=== PATIENT | female | born 1950 | race Caucasian/White ===

== ENCOUNTER 2017-01-17 17:48 | Observation (INO) | payer MEDICARE, OTHER ==
[~2017-01-17] VITALS: Ht 172.7 cm; Wt 122.8 kg
[2017-01-17] VITALS (7 sets, daily range): BP systolic 168–215; BP diastolic 66–95; PULSE 75–85; RESP 16–18; O2SAT 95–100
--- NOTE | 2017-01-17 18:06 | ED.REPORT ---
HPI-Chest Pain 40 and Over Date of Service Jan 17, 2017 ED Provider: Kenney Young DO 66-year-old female with past medical history of coronary artery disease with stent placement in 2012, hypertension, hyperlipidemia, prediabetes, breast cancer with radiation treatment, presents today with chest heaviness. She states this began 30 minutes prior to arrival while she was sitting watching TV. Her symptoms came on suddenly and have been intermittent since onset. She states she is not in pain but describes a heaviness in her chest which radiates to her right shoulder. When she had her coronary stent back in 2012 she does not describe having chest pain. She denies shortness of breath, nausea/vomiting , fever chills, abdominal pain, changes in bowel or bladder, she has not lost consciousness, she does not feel dizzy, did not have a headache until nitroglycerin was given in the ambulance. Blood pressure on arrival was 215/95. Nursing Notes Stated Complaint: CHEST PAIN Chief Complaint: Chest Pain Nursing Notes Reviewed: Yes Allergies: Coded Allergies: Macrolide Antibiotics (Verified Allergy, Unknown, 01/17/17) Penicillins (Verified Allergy, Unknown, 01/17/17) amoxicillin (Verified Allergy, Unknown, rash, 01/17/17) erythromycin base (Verified Allergy, Unknown, 01/17/17) strawberry (Verified Allergy, Unknown, hives, oral sores, 01/17/17) Uncoded Allergies: ORANGES (Allergy, Unknown, oral sores, 01/17/17) Scheduled Lisinopril (Lisinopril) 10 Mg Tablet 10 MG PO QAM Lisinopril (Lisinopril) 10 Mg Tablet 5 MG PO HS Metoprolol Tartrate (Metoprolol Tartrate) 25 Mg Tablet 25 MG PO BID Simvastatin (Simvastatin) 20 Mg Tablet 20 MG PO HS General Time Seen by MD: 18:06 Chief Complaint Chest pain Hx Obtained From: Patient, EMS Arrived By: Ambulance Sudden in Onset?: Yes Onset Occurred: Just prior to arrival Severity: Current: No pain currently Severity: Maximum: No pain Risk Factors )( CAD Risk Stratification Hyperlipidemia Hypertension Known CADNo Amphetamine, No Cocaine, No Diabetes mellitus, No Smoking Risk factors reviewed )( TAD Risk Stratification Risk factors reviewed )( PE Risk Stratification Risk factors reviewed Past Medical History Past Medical History Breast cancer with radiation Reports: Coronary artery disease, Hyperlipidemia, Hypertension Smoking History Never Smoker Social History Alcohol Use: Denies alcohol use Drug Use: Denies drug use Review of Systems Basic Review of Systems : No dysuria, No frequency Constitutional: Denies: Chills, Fever Respiratory: Denies: Non-productive cough, Pleuritic pain, Shortness of breath , Wheezing Cardiovascular: Reports: Chest pain GI: Denies: Abdominal pain, Constipation, Diarrhea Skin: Denies Diaphoresis Neurologic: Denies: Abnormal movement, Bladder dysfunction, Bowel dysfunction, Change LOC, Dizziness, Headache, Lightheaded Complete sys rev & neg: except as marked. Physical Exam Physical Exam Notes: Swelling in the left arm, the resected lymph nodes in breast cancer treatment. Blood pressure symmetrical in all 4 extremities Initial Vital Signs Vital Signs (First) Date Time Temp Pulse Resp B/P Pulse Ox O2 Delivery O2 Flow Rate FiO2 01/17/17 18:01 36.9 85 16 215/95 98 Room Air Initial VS: Reviewed, Vital signs abnormal Head / Eyes: Atraumatic, Normocephalic, PERRL ENT: Mucous membranes moist, Conjunctiva normal, No scleral icterus Neck: Supple, Non-tender, Full range of motion Extremities: Vascular intact, Neuro intact, No tenderness Skin: Warm, Dry, No cyanosis Neurologic: Alert, Oriented, Nonfocal Psychiatric: Mood/affect normal, Behavior normal, Normal thought content General/Constitutional: Awake, Alert, No acute distress, Well appearing, Cooperative, Not toxic appearing Respiratory / Chest: Atraumatic, Breath sounds NL, Breath sounds = bilat, No rales, No rhonchi, No wheezing Cardiovascular: Heart rate NL, Regular rhythm, Heart sounds NL, No murmurs, No rubs Interpretation & Diagnostics Lab Results Interpretation Result Diagram: 01/17/17 1755 01/17/17 1755 Test 01/17/17 17:55 White Blood Count 8.8th/mm3 (3.8-10.1) Red Blood Count 4.07mil/mm3 (3.90-5.20) Hemoglobin 12.0g/dL (12.0-15.6) Hematocrit 36.2% (35.0-46.0) Mean Corpuscular Volume 88.9fL (81-100) Mean Corpuscular Hemoglobin 29.5pg (27.0-35.0) Mean Corpuscular Hemoglobin Concent 33.1% (32.0-37.0) Red Cell Distribution Width 14.3% (12.3-15.4) Platelet Count 288bil/L (150-400) Neutrophils (%) (Auto) 54.9% (40-74) Lymphocytes (%) (Auto) 31.4% (14-46) Monocytes (%) (Auto) 9.3% (4-12) Eosinophils (%) (Auto) 3.8% (0-5) Basophils (%) (Auto) 0.5% (0-3) Sodium Level 141mEq/L (134-144) Potassium Level 4.0mEq/L (3.5-5.2) Chloride Level 102mEq/L (97-108) Carbon Dioxide Level 21mmol/L (18-29) Blood Urea Nitrogen 16mg/dL (8-27) Creatinine 0.79mg/dL (0.57-1.00) Estimat Glomerular Filtration Rate 104mL/min (>59) Glucose Level 148mg/dL (60-99) Calcium Level 9.5mg/dL (8.5-10.1) Magnesium Level 2.1mg/dL (1.6-2.6) Total Bilirubin 0.3mg/dL (0.0-1.2) Aspartate Amino Transf (AST/SGOT) 24U/L (0-50) Alanine Aminotransferase (ALT/SGPT) 26U/L (0-32) Alkaline Phosphatase 65U/L (25-165) Total Protein 6.9g/dL (6.4-8.4) Albumin 3.7g/dL (3.4-5.0) ECG Interpretation ECG Interpretation: Not suggestive of ischemic change Slight Left axis deviation Interpreted by: ED physician Normal ECG Interpretation: Normal rate, Normal sinus rhythm, No acute ischemic changes, Normal QRS, Normal intervals, Adequate tracing Atrium and Vent Size: Ventricle enlarged - L Re-Eval/Medical Decision Med Decision/Clinical Course Heart score 6. Risk factors for [place] include history of high suspicion including heaviness in the chest which radiates the right shoulder, Age over 65, history of hypertension, high cholesterol, stent placement 2012. Initial troponins negative, EKG showed nonspecific findings of left ventricular hypertrophy. Patient was given nitroglycerin the ambulance in route, she states that her pain is not changed significantly since that time. Her blood pressure on arrival was 215/95 which is concerning for hypertensive crisis. With a past medical history and symptoms she is presenting with today we are concerned for unstable angina. He went to normal EKG findings and negative troponins and was advised the patient be admitted to the hospital for further observation and workup. Counseled Regarding: Diagnosis, Lab results, Need for admission Discharge & Departure Primary Impression: Unstable angina Additional Impression: Hypertensive crisis Disposition: ADMITTED TO HOSPITAL Discharge Condition All VS Reviewed: Yes Condition: Stable Referrals: Barbara Garnica MD (PCP) Crit Care Except Billable Proc Time Spent: 75-104 minutes Services Performed: Patient management by me, Time spent at bedside, Reviewing test results, Reviewing imaging, Discussing patient care, Documentation in record, Time with fam/surrogate, Other (managing her accelerated hypertension and ongoing chest pain crisis.) Attending Statement I personally took a history performed an exam. I was present on multiple occasions during the interventions. Blood pressure was treated nicely with IV beta franky and nitrates. Chest pain resolved. First troponin was negative. First EKG is not sure STEMI. Aortic dissection felt to be very unlikely based on history, physical and symmetric blood pressures. Patient was admitted stable to the hospitalist service. Meño Bettencourt DO Jan 17, 2017 18:06 Kenney Young DO Jan 18, 2017 00:13
[2017-01-17 18:10] LABS: BASOPHILS % (AUTO) 0.5 % (0-3); EOSINOPHILS % (AUTO) 3.8 % (0-5); MONOCYTES % (AUTO) 9.3 % (4-12); Mean Corpuscular Hemoglobin 29.5 pg (27.0-35.0); Mean Corpuscular Volume 88.9 fL (81-100); NEUTROPHILS % (AUTO) 54.9 % (40-74); Platelet Count 288 bil/L (150-400)
[2017-01-17] MEDS ORDERED: Nitroglycerin 2% 1 Gm Ointment TOPICAL ONE (18:20)
--- NOTE | 2017-01-17 18:28 | DRSVH ---
PROCEDURE: X-RAY CHEST ONE VIEW, PORTABLE ([id number]) INDICATIONS: cp TECHNIQUE: One view of the chest was acquired. COMPARISON: [facility], CR, CHEST 2VW, 09/20/2015, 9:56. FINDINGS: Surgical changes and devices: air cargo agent leads are seen over the chest. Multiple vascular clips are seen in the region of the left breast. Lungs and pleura: No pleural effusions or pneumothorax. Lungs are clear. Mediastinum: Mediastinal contours appear normal. Heart size is normal. Bones and chest wall: No suspicious bony lesions. Overlying soft tissues appear unremarkable. IMPRESSION: Acute disease is not seen and may upright portable chest. Dictated by: Arsen Pak M.D. on 01/17/2017 at 18:24 Approved by: Arsen Pak M.D. on 01/17/2017 at 18:26
[2017-01-17 18:38] LABS: Magnesium 2.1 mg/dL (1.6-2.6)
[2017-01-17 18:40] LABS: TROPONIN T < 0.010 ug/L (0.0-0.011)
[2017-01-17] MEDS: MeTOProlol 1 mg/mL 5 mL Inj IVPUSH SCH ×3 (18:56→19:56)
[2017-01-17] MEDS ORDERED: Labetalol 5 mg/mL 4 mL Inj IVPUSH ONE (19:20)
[2017-01-17] MEDS ORDERED: METO25TA6 PO (19:45)
[2017-01-17] MEDS ORDERED: SIMV20TA4 PO (19:45)
[2017-01-17] MEDS ORDERED: LISI10TA PO ×2 (19:45)
[2017-01-17] MEDS ORDERED: Alum-Mag Hydrox-Simeth 30 mL Suspension PO PRN ×2 (21:05→21:50)
[2017-01-17] MEDS ORDERED: Ondansetron 2 mg/mL 2 mL Inj IVPUSH PRN ×2 (21:05→21:50)
[2017-01-17] MEDS ORDERED: Senna-Docusate 8.6-50 mg Tablet PO PRN (21:50)
[2017-01-17] MEDS ORDERED: Polyethylene Glycol (PEG) 17 Gm Powder PO PRN (21:50)
[2017-01-17] MEDS: Heparin 5,000 Unit/mL Inj SUBQ SCH (22:39)
[2017-01-17] MEDS: Sodium Chloride LOK Flush 10 mL Syringe IVFLUSH SCH (22:48)
--- NOTE | 2017-01-17 23:18 | PCM.HPMED ---
Subjective Date of Service Jan 17, 2017 Primary Provider: Admitting Physician: Vinod Christian MD Primary Care Physician: Bernadette Hendricks Attending Physician: Vinod Christian MD Chief Complaint: Chest heaviness History of Present Illness: Leona oates is a 66-year-old female with past medical issues significant for coronary artery disease with status post LAD bare metal stent in 2010, hypertension, hyperlipidemia, breast cancer status post resection, TRAM flap, chemoradiation completed in 2002, and anxiety who presents with sudden onset of chest heaviness. Chest heaviness started her on 1500 today while she was watching TV. She states that prior to that she was in her normal state of health and did not exert herself more than normal today. Chest heaviness sternum and radiated to the right shoulder. Patient has never had a myocardial infarction so no symptoms to compare this to. She had some associated diaphoresis and nausea but denies any significant shortness of breath, dizziness , headache, or weakness. Chest heaviness has been intermittent over the last 4- 5 hours. She rates the pain at worst as a 5 out of 10 but currently it is more of an annoyance. She experienced no relief with sublingual nitroglycerin. Pertinent cardiac history includes a stress test in 2010 due to chest pressure that revealed apical ischemia and led to bare metal stent of the LAD. She has had a more recent nuclear stress test in 2014 that showed similar findings to her prior test in 2010. Patient was brought by EMS and received through 24 mg of aspirin and 2 doses of sublingual nitroglycerin. In the ED patient's vitals were temp 36.9, pulse 85, respiratory 16 sex are 98% on room air, blood pressure 215/95. Patient subsequently received 3 doses of metoprolol 5 mg IV reducing blood pressure to the 170s systolic. EKG was obtained and revealed no ST changes or other signs of ischemia. Labs were unremarkable including a negative troponin. Due to patient's significant cardiac history and stent placement she is admitted for ACS rule out. Review of Systems: Comprehensive review of systems was conducted with the patient and found to be negative except as noted above in HPI. Allergies Coded Allergies: Macrolide Antibiotics (Verified Allergy, Unknown, 01/17/17) Penicillins (Verified Allergy, Unknown, 01/17/17) amoxicillin (Verified Allergy, Unknown, rash, 01/17/17) erythromycin base (Verified Allergy, Unknown, 01/17/17) strawberry (Verified Allergy, Unknown, hives, oral sores, 01/17/17) Uncoded Allergies: ORANGES (Allergy, Unknown, oral sores, 01/17/17) Home Medications Lisinopril 10 mg every morning and 5 mg at bedtime Simvastatin Metoprolol 5 mg twice a day PMH Left breast cancer status post resection, TRAM flap, and chemoradiation in remission since 2002 Coronary artery disease status post bare-metal stent of the LAD Hypertension Hyperlipidemia Anxiety Surgical History Resection and TRAM flap of left breast Right breast reduction Tonsillectomy Family History Father - lung cancer secondary to smoking Brother - COPD, asthma, melanoma Social History Hx Alcohol Use: Yes (RARELY) Hx Substance Use: No Hx Tobacco Use: No (significant secondhand smoke exposure) Smoking Status: Never Smoker Living Arrangement: with Family Exam Vital Signs Vital Sign - Last Date Time Temp Pulse Resp B/P Pulse Ox O2 Delivery O2 Flow Rate FiO2 01/17/17 22:35 36.9 81 18 173/76 97 Room Air Exam General: No acute distress, well-developed, well-nourished, appropriately interactive HEENT: Normocephalic, atraumatic. External ears without defect. Pupils equal, round, and reactive to light and accommodation. Anicteric sclerae, moist conjunctivae, and no lid lag. Oropharynx free of erythema and cobble stoning with moist mucosa. Neck: Supple with full range of motion. No jugular venous distension. Chest: Surgical scars present from left TRAM flap and right breast reduction. Cardiovascular: Regular rate and rhythm with no murmurs, rubs, or gallops appreciated Pulmonary: Clear to auscultation bilaterally with no crackles, wheezes, or rhonchi. Normal respiratory effort with no use of accessory muscles. Abdomen: Bowel tones present. Soft, nontender, protuberant. Extremities: No clubbing, cyanosis, edema, or lymphadenopathy appreciated. Skin: Normal temperature, turgor, and texture; no rash, ulcers, or subcutaneous nodules appreciated. Neurological: Cranial nerves grossly intact. No known gait impairment. Psychiatric: Normal mood and affect. Alert and oriented to person, place, and time. Lab and Diagnostics Labs Troponin less than 0.010 Result Diagram: 01/17/17 7327 01/17/17 945 Assessment & Plan Leona whitlock be is a 66-year-old female with past medical issues significant for coronary artery disease with status post LAD bare metal stent in 2010, hypertension, hyperlipidemia, breast cancer status post resection, TRAM flap, chemoradiation completed in 2002, and anxiety who presents with sudden onset of chest heaviness. Admitted for ACS rule out. Chest pain, present on admission, active. - ECG revealed normal sinus rhythm with LVH but no ST elevations or other signs of ischemia. - Initial troponin < 0.010. Trending troponins 3. - Lipid panel pending. - Supplemental oxygen as needed. - Aspirin 324 mg initially received and 81 mg continued daily. - Sublingual nitroglycerin as needed. - Monitor on remote telemetry. - Stress test scheduled for tomorrow. Instructions as follows: - Patient NPO starting at 0400 on 01/18/17. - No caffeine. - Hold beta blockers. Coronary artery disease status post bare metal stent of the LAD, present on admission, chronic. - Nuclear stress test in 2014 revealed apical ischemia similar to findings on prior test in 2010. - Home regimen does not include a daily aspirin. Aspirin 81 mg daily started. - Patient on simvastatin at home. Pharmacy does not carry this statin and patient has had adverse reactions to other statins. Hypertension, present on admission, active. - Blood pressure elevated to 200 systolic on presentation. IV metoprolol 5 mg 3 given in the ED with appropriate response - Continue home regimen of lisinopril 10 mg in the a.m. and 5 mg HS. - Metoprolol held for stress test tomorrow. Hyperlipidemia, present on admission, chronic. - Patient on simvastatin at home. Pharmacy does not carry this statin and patient has had adverse reactions to other statins. - We will hold statin therapy while inpatient. PRN Medications - Acetaminophen as needed for mild pain/fever/headache - Bowel regimen as needed - Antiemetic as needed Patient is admitted under observation status with expected length of stay less than 2 midnights due to severity of presenting symptoms, risk of adverse event, and complexity of treatment plan. Pain Evaluation: Adequate Pain Control GI Prophylaxis: Not indicated VTE Prophylaxis: Sub-Q Heparin (Unfractionated), SCDs Resuscitation Status: CPR: Attempt Resuscitation Attending Statement The patient was seen and examined together with Dr. Caldera on 01/17 and I agree with the history, exam and plan as outlined in the note above. RICHARDSON CALDERA DO Jan 17, 2017 23:18 Vinod Christian MD Jan 18, 2017 02:39
[2017-01-18 02:32] VITALS: BP 194/83; PULSE 89; RESP 16; O2SAT 96
[2017-01-18 05:11] VITALS: PULSE 81
[2017-01-18 05:12] LABS: Magnesium 2.2 mg/dL (1.6-2.6); Phosphorus 3.3 mg/dL (2.5-4.9)
--- NOTE | 2017-01-18 06:35 | NUR ---
Admit/CP Admitted to 1029 from ED via stretcher. Able to ambulate on arrival. No noted SOB on RA. Tele SR without c/o CP initially. Denies n/v or issues with PO intake. NPO @ 0400 per MD orders. Toileting per BSC. IV SL. Personal belongings at bedside per patient request. Oriented to call light use with return demonstration. c/o 2-09/08 CP with radiation into left arm as apposed to radiation into right arm which she had experienced at home. She was unable to provide much description about the type of pain other than her left hand had mild numbness with the pain. STAT EKG obtained and SL nitro x1 administered along with O2 administration with resolved all pain. Patient also noted to be experiencing dyspnea during the event which also resolved once no longer experiencing CP.
[2017-01-18 06:45] VITALS: BP 157/73; PULSE 86; RESP 16; O2SAT 98
[2017-01-18 08:00] VITALS: PULSE 85
[2017-01-18] MEDS: Heparin 5,000 Unit/mL Inj SUBQ SCH ×2 (08:30→14:50)
[2017-01-18] MEDS: Sodium Chloride LOK Flush 10 mL Syringe IVFLUSH SCH ×2 (08:30→14:50)
[2017-01-18 08:33] VITALS: BP 155/74; PULSE 91; RESP 18; O2SAT 95
--- NOTE | 2017-01-18 12:20 | NUR ---
Off Unit Pt off unit to Stress Test at 1200; tele box left in room. Pt aware of the plan re: stress test. NPO since 399, IV SL, Pt to BR prior to leaving. Chart with pt. Left via w/c. Await pt return. Addendum: 01/18/17 at 1653 by JAMSHID NI RN Returned to [facility]SC unit from Stress Test, back to 1029, at 1415. Chart returned. Pt up to BR, no pain, tele reapplied. Food ordered and water provided.
--- NOTE | 2017-01-18 15:15 | NUR ---
Social Work- Initial Assessment/Readiness for Discharge/Multidisciplinary Rounds Data: See attached initial assessment for more information. Pt is a 66 year old female admitted for ACS per H&P. Pt's insurance is [employer]. Pt's PCP is MARYANNE Cha. Pt's readmit risk score is not listed. Pt discussed in rounds. Pt to receive stress test today and pending results may discharge this evening. No social work needs identified in rounds. SW met with pt at bedside regarding discharge plan. Pt alert and oriented x3. Pt resides in [place] with her . Pt's capacity for self-care assessed. Pt is independent with ADLs and self-care. Pt uses no DME and drives. Pt has no HH or SNF history. Pt's daughter is her identified discharge contact--Juany [phone]. Pt provided paperwork for DPOA. No concerns related to self-care. SW provided plan on whiteboard and phone number. Pt provided with discharge planning checklist and instructed to contact if needs arise. Pt to discharge home with family to transport via POV. No needs identified at this time. Assessment: Pt who is independent at baseline. Plan: Pt to discharge home with family to transport via POV. No needs identified at this time. CHANTEL Arana Addendum: 01/18/17 at 1520 by MARIBETH DEVI SS Amended: Links added.
--- NOTE | 2017-01-18 15:33 | PCM.PNMED ---
Subjective Date of Service Jan 18, 2017 Subjective Patient denies any current chest pain. No major overnight events. Exam Vital Signs Vital Sign - Last Date Time Temp Pulse Resp B/P Pulse Ox O2 Delivery O2 Flow Rate FiO2 01/18/17 08:33 36.7 91 18 155/74 95 Room Air 01/18/17 06:45 2.00 Intake and Output 01/17/17 01/17/17 01/18/17 Cumulative From/Thru 15:00 23:00 07:00 01/17/17 18:01 - 01/18/17 02:34 Intake Total 0 ml 0 ml Balance 0 ml 0 ml IV Total 0 ml 0 ml # Voids 1 1 Exam General: No acute distress, well-developed, well-nourished, appropriately interactive HEENT: Normocephalic, atraumatic. External ears without defect. Pupils equal, round, and reactive to light and accommodation. Anicteric sclerae, moist conjunctivae, and no lid lag. Oropharynx free of erythema and cobble stoning with moist mucosa. Neck: Supple with full range of motion. No jugular venous distension. Chest: Surgical scars present from left TRAM flap and right breast reduction. Cardiovascular: Regular rate and rhythm with no murmurs, rubs, or gallops appreciated Pulmonary: Clear to auscultation bilaterally with no crackles, wheezes, or rhonchi. Normal respiratory effort with no use of accessory muscles. Abdomen: Bowel tones present. Soft, nontender, protuberant. Extremities: No clubbing, cyanosis, edema, or lymphadenopathy appreciated. Skin: Normal temperature, turgor, and texture; no rash, ulcers, or subcutaneous nodules appreciated. Neurological: Cranial nerves grossly intact. No known gait impairment. Psychiatric: Normal mood and affect. Alert and oriented to person, place, and time. IVs and Medications Medications Reviewed: Medications were reviewed in detail Lab and Diagnostics Laboratory Tests Test 01/17/17 17:55 01/17/17 22:30 01/18/17 04:00 White Blood Count 8.8th/mm3 (3.8-10.1) Red Blood Count 4.07mil/mm3 (3.90-5.20) Hemoglobin 12.0g/dL (12.0-15.6) Hematocrit 36.2% (35.0-46.0) Mean Corpuscular Volume 88.9fL (81-100) Mean Corpuscular Hemoglobin 29.5pg (27.0-35.0) Mean Corpuscular Hemoglobin Concent 33.1% (32.0-37.0) Red Cell Distribution Width 14.3% (12.3-15.4) Platelet Count 288bil/L (150-400) Neutrophils (%) (Auto) 54.9% (40-74) Lymphocytes (%) (Auto) 31.4% (14-46) Monocytes (%) (Auto) 9.3% (4-12) Eosinophils (%) (Auto) 3.8% (0-5) Basophils (%) (Auto) 0.5% (0-3) Sodium Level 141mEq/L (134-144) 139mEq/L (134-144) Potassium Level 4.0mEq/L (3.5-5.2) 4.7mEq/L (3.5-5.2) Chloride Level 102mEq/L (97-108) 103mEq/L (97-108) Carbon Dioxide Level 21mmol/L (18-29) 21mmol/L (18-29) Blood Urea Nitrogen 16mg/dL (8-27) 15mg/dL (8-27) Creatinine 0.79mg/dL (0.57-1.00) 0.73mg/dL (0.57-1.00) Estimat Glomerular Filtration Rate 104mL/min (>59) 114mL/min (>59) Glucose Level 148mg/dL (60-99) 186mg/dL (60-99) Hemoglobin A1c 7.5% (4.8-5.6) Calcium Level 9.5mg/dL (8.5-10.1) 9.3mg/dL (8.5-10.1) Magnesium Level 2.1mg/dL (1.6-2.6) 2.2mg/dL (1.6-2.6) Total Bilirubin 0.3mg/dL (0.0-1.2) Aspartate Amino Transf (AST/SGOT) 24U/L (0-50) Alanine Aminotransferase (ALT/SGPT) 26U/L (0-32) Alkaline Phosphatase 65U/L (25-165) Troponin T < 0.010ug/L (0.0-0.011) 0.010ug/L (0.0-0.011) 0.010ug/L (0.0-0.011) Total Protein 6.9g/dL (6.4-8.4) Albumin 3.7g/dL (3.4-5.0) Phosphorus Level 3.3mg/dL (2.5-4.9) Triglycerides Level 101mg/dL (0-149) Cholesterol Level 173mg/dL (100-199) LDL Cholesterol, Calculated 88.800mg/dL (0-99) VLDL Cholesterol 20.200mg/dL HDL Cholesterol 64mg/dL (>39) Cholesterol/HDL Ratio 2.70 (0.0-4.4) Result Diagram: 01/17/17175401/18/170 X-Rays, CTs and MRIs Date of Service: 01/17/171804 PROCEDURE: X-RAY CHEST ONE VIEW, PORTABLE ([id number]) INDICATIONS: cp TECHNIQUE: One view of the chest was acquired. COMPARISON: [facility], , CHEST 2VW, 09/20/2015, 9:56. FINDINGS: Surgical changes and devices: ekg monitor tech leads are seen over the chest. Multiple vascular clips are seen in the region of the left breast. Lungs and pleura: No pleural effusions or pneumothorax. Lungs are clear. Mediastinum: Mediastinal contours appear normal. Heart size is normal. Bones and chest wall: No suspicious bony lesions. Overlying soft tissues appear unremarkable. IMPRESSION: Acute disease is not seen and may upright portable chest. 12-lead ECG 01/18/20173561-JOX-dcidl rhythm, LVH heart rate 89 QTC 47 Additional Diagnostics 01/18/2017-Stress test NM-pending Assessment & Plan Leona to be is a 66-year-old female with past medical issues significant for coronary artery disease with status post LAD bare metal stent in 2010, hypertension, hyperlipidemia, breast cancer status post resection, TRAM flap, chemoradiation completed in 2002, and anxiety who presents with sudden onset of chest heaviness. Admitted for ACS rule out. Chest pain, present on admission, resolved. - ECG revealed normal sinus rhythm with LVH but no ST elevations or other signs of ischemia. - Initial troponin < 0.010. Trending troponins 3. Troponins were negative 3 - Lipid panel-within normal limits. - Supplemental oxygen as needed. - Aspirin 324 mg initially received and 81 mg continued daily. - Sublingual nitroglycerin as needed. - Monitor on remote telemetry. -01/18-stress test pending. Coronary artery disease status post bare metal stent of the LAD, present on admission, chronic. - Nuclear stress test in 2014 revealed apical ischemia similar to findings on prior test in 2010. - Home regimen does not include a daily aspirin. Aspirin 81 mg daily started. - Patient on simvastatin at home. Pharmacy does not carry this statin and patient has had adverse reactions to other statins. Hypertension, present on admission, active. - Blood pressure elevated to 200 systolic on presentation. IV metoprolol 5 mg 3 given in the ED with appropriate response - Continue home regimen of lisinopril 10 mg in the a.m. and 5 mg HS. -Metoprolol resumed after stress test. Hyperlipidemia, present on admission, chronic. - Patient on simvastatin at home. Pharmacy does not carry this statin and patient has had adverse reactions to other statins. - We will hold statin therapy while inpatient. PRN Medications - Acetaminophen as needed for mild pain/fever/headache - Bowel regimen as needed - Antiemetic as needed Patient is admitted under observation status with expected length of stay less than 2 midnights due to severity of presenting symptoms, risk of adverse event, and complexity of treatment plan. Discharge Instructs- - We will add 81 mg aspirin daily. Continue with simvastatin. - Sublingual nitroglycerin as needed GI Prophylaxis: Not indicated VTE Prophylaxis: Sub-Q Heparin (Unfractionated), SCDs Resuscitation Status: CPR: Attempt Resuscitation Victorino Sagastume MD Jan 18, 2017 15:33
[2017-01-18 16:52] VITALS: BP 178/79; PULSE 84; RESP 20; O2SAT 97
--- NOTE | 2017-01-18 17:30 | PCM.DIMED ---
Discharge Instructions Date of Service Jan 18, 2017 Dates of Hospitalization Jan 17, 2017 at 21:23 Discharge Diagnosis Discharge Diagnosis Chest pain, present on admission, resolved. Coronary artery disease status post bare metal stent of the LAD, present on admission, chronic. Hypertension, present on admission, active. Hyperlipidemia, present on admission, chronic. Medication Instructions Additional med instructions Start taking the [id number] 81 mg dose of aspirin daily. Patient Instructions Patient Instructions Even though your stress test was negative should still follow up with your call box wirer in 1 week Victorino Sagastume MD Jan 18, 2017 17:30
--- NOTE | 2017-01-18 17:49 | NUR ---
Case Management: LEE explained to patient at 1740, all questions answered. Signed original placed in chart, copy given to patient. Tiffanie Aj RN Addendum: 01/18/17 at 1753 by TIFFANIE AJ CM Pt refused the Medicare Drug D information sheet. Tiffanie Aj RN
--- NOTE | 2017-01-18 18:22 | DRSVH ---
PROCEDURE: 1 DAY TREADMILL STRESS TEST INDICATIONS: CHEST PAIN WITH STENT IN 2010 COMPARISON: None. Radiopharmaceutical: Rest dose 16 mCi of technetium 99m tetrofosmin Stress dose 47.2 mCi of technetium 99m tetrofosmin Indication: Patient is a 66-year-old woman with hypertension, hyperlipidemia and chest pain FINDINGS: Graded exercise stress test: Following informed consent patient walked on the Mauricio protocol for 2 mi nutes and 37 seconds. Patient has severely reduced exercise capacity. Functional aerobic impairment i ndex is 45%. The study was terminated due to shortness of breath and fatigue. Study was characterized by hypertension. Blood pressure radhika from 178/80 up to 240 mm Hg. there were no significant ST segm ent changes. Frequent monomorphic PVCs. Alvarado treadmill score is 2 consistent with intermediate risk s tudy. Raw Data: Normal myocardial tracer uptake. LUNG HEART ratio is normal. Quantitative gated SPECT: At peak stress ejection fraction is 75%. Rest ejection fraction is 69%. No rmal wall motion. Myocardial perfusion imaging: There is no evidence of ischemia or prior infarct. IMPRESSION: Low risk graded exercise stress test with myocardial perfusion imaging. No evidence of ischemia or prior infarct. Normal wall motion and left ventricular systolic function. No prior study available for comparison Dictated by: Ashley Gil M.D. on 01/18/2017 at 17:43 Approved by: Ashley Gil M.D. on 01/18/2017 at 18:20
--- NOTE | 2017-01-18 19:06 | NUR ---
Discharge Pt discharged to home with family at ~1805. A&Ox3, CASTILLO, Tele off, IV dc'd intact, No scripts, All personal belongings in hand. CareNotes and teaching re: s/sx to seek medical attention for re: Chest pain and the need to start taking 81mg. Talked about healthy living style - diet and activity. Pt ambulated off unit with family.
== END 2017-01-18 18:05 | disposition home or self-care (01) ==
LOC: EDBD 17:48 → SED 17:48 → OSC 21:23
PROVIDERS: ADMIT Hospitalist; ATTEND Internal Medicine
DX: R07.89 Other chest pain (principal); I25.10 Atherosclerotic heart disease of native coronary artery without angina pectoris; I10 Essential (primary) hypertension; E78.5 Hyperlipidemia, unspecified; F41.9 Anxiety disorder, unspecified; Z98.61 Coronary angioplasty status; Z85.3 Personal history of malignant neoplasm of breast
CPT/HCPCS: 36415; 71010; 78452; 80048; 80053; 80061; 82948; 83036; 83735; 84100; 84484; 85025; 93005; 93017; 96374; 96376; 99291; 99292; A9502; G0378; J1644